=== PATIENT | female | born 1985 | race Caucasian/White ===

== ENCOUNTER 2016-08-07 19:35 | Emergency (ER) | payer OTHER ==
[~2016-08-07] VITALS: Ht 175.3 cm; Wt 63.5 kg
[2016-08-07 21:39] VITALS: BP 118/76
[2016-08-07] MEDS: IBUPROFEN 600 MG TAB PO ONE (22:42)
== END 2016-08-07 22:45 | disposition home or self-care (01) ==
LOC: ER 19:35
DX: M54.2 Cervicalgia (principal); M79.1 Myalgia; V49.49XA Driver injured in collision with other motor vehicles in traffic accident, initial encounter; Y93.89 Activity, other specified; Y99.8 Other external cause status; Y92.89 Other specified places as the place of occurrence of the external cause

== ENCOUNTER 2021-01-25 08:59 | Emergency (ER) | payer BC, MEDICAID ==
[~2021-01-25] VITALS: Ht 175.3 cm; Wt 71.2 kg
[2021-01-25 09:45] VITALS: BP 119/86
== END 2021-01-25 10:26 | disposition home or self-care (01) ==
LOC: ER 08:59
DX: S92.344A Nondisplaced fracture of fourth metatarsal bone, right foot, initial encounter for closed fracture (principal); X50.1XXA Overexertion from prolonged static or awkward postures, initial encounter; Y93.89 Activity, other specified; Y92.89 Other specified places as the place of occurrence of the external cause; Y99.8 Other external cause status
CPT/HCPCS: 29515; 73630

== ENCOUNTER 2022-02-10 07:13 | Emergency (ER) | payer BC, MEDICAID ==
[~2022-02-10] VITALS: Ht 175.3 cm; Wt 72.0 kg
[2022-02-10 09:18] VITALS: BP 111/79
[2022-02-10] MEDS ORDERED: IBUP800T26 PO (09:34)
[2022-02-10] MEDS ORDERED: AMOX-277 PO (09:34)
== END 2022-02-10 09:41 | disposition home or self-care (01) ==
LOC: ER 07:13
DX: J06.9 Acute upper respiratory infection, unspecified (principal); H66.92 Otitis media, unspecified, left ear